=== PATIENT | female | born 2000 | race Caucasian/White ===

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

== ENCOUNTER → 2020-10-30 | Outpatient (CLI) | payer OTHER ==
[~2020-10-30] MED LIST: VALTREX1000 MG PO
[2020-10-30 18:59] LABS: HEMOGLOBIN 13.9 gm/dl (12.3-15.3); RED BLOOD COUNT 5.3 M/UL (4.00-5.10); WHITE BLOOD COUNT 8.1 K/UL (4.5-11.0)
[2020-10-31 07:19] LABS: BUN/CREATININE RATIO 11 (0-10)
[2020-11-01 09:13] LABS: RHEUMATOID ARTHRITIS FACTOR <10.0 IU/mL (0.0-13.9)
== END ==
LOC: LAB 16:54
PROVIDERS: Dermatology
DX: R53.83 Other fatigue (principal); R63.4 Abnormal weight loss; R53.81 Other malaise; E66.3 Overweight; R79.9 Abnormal finding of blood chemistry, unspecified; L65.9 Nonscarring hair loss, unspecified
CPT/HCPCS: 80053; 80076; 82595; 84443; 85025; 85652; 86038; 86431

== ENCOUNTER 2022-01-30 18:03 | Emergency (ER) | payer OTHER ==
[2022-01-30] MEDS ORDERED: ZYRTEC10 MG PO (22:18)
[2022-01-30] MEDS ORDERED: PREDNISONE 20 M20 MG PO (22:18)
== END 2022-01-30 22:55 | disposition home or self-care (01) ==
LOC: ER1 18:03
DX: J34.0 Abscess, furuncle and carbuncle of nose (principal); Z88.0 Allergy status to penicillin
CPT/HCPCS: 99283

== ENCOUNTER → 2022-02-22 | Outpatient (CLI) | payer OTHER ==
[~2022-02-22] MED LIST changes: +PREDNISONE 20 M20 MG PO; +ZYRTEC10 MG PO
[2022-02-22 13:12] LABS: HEMOGLOBIN 13.8 gm/dl (12.3-15.3); RED BLOOD COUNT 5.16 M/UL (4.00-5.10)
== END ==
LOC: LAB 12:56
PROVIDERS: Nurse Practitioner Family
DX: R59.9 Enlarged lymph nodes, unspecified (principal)
CPT/HCPCS: 36415; 85025

== ENCOUNTER 2022-05-27 00:50 | Emergency (ER) | payer OTHER | END 2022-05-27 04:58 | disposition home or self-care (01) | LOC: ER1 00:50 | DX: R51.9 Headache, unspecified (principal) | CPT/HCPCS: 96374; 96375; 99283; J1200; J1885; J2405 ==